=== PATIENT | male | born 1965 | race Caucasian/White ===

== ENCOUNTER → 2019-11-19 10:13 | Outpatient (BNVA) | payer MEDICARE, SELFPAY | PROVIDERS: Visit Provider Family Medicine | DX: I10 Essential (primary) hypertension (principal); J44.9 Chronic obstructive pulmonary disease, unspecified; K21.9 Gastro-esophageal reflux disease without esophagitis | CPT/HCPCS: 80053; 80061; 83735; 85025 ==

== ENCOUNTER → 2020-02-09 13:43 | Outpatient (BNVA) | payer MEDICARE, SELFPAY | PROVIDERS: PCP Family Medicine; Referring Provider Family Medicine; Visit Provider Specialist | DX: G37.9 Demyelinating disease of central nervous system, unspecified (principal); F41.0 Panic disorder [episodic paroxysmal anxiety]; Z87.891 Personal history of nicotine dependence | CPT/HCPCS: 99205 ==

== ENCOUNTER → 2020-06-14 12:18 | Outpatient (BNVA) | payer MEDICARE, SELFPAY | PROVIDERS: PCP Family Medicine; Visit Provider Specialist | DX: G37.9 Demyelinating disease of central nervous system, unspecified (principal); Z87.891 Personal history of nicotine dependence | CPT/HCPCS: 99214 ==

== ENCOUNTER → 2020-07-21 17:59 | Outpatient (BNVA) | payer MEDICARE, SELFPAY | PROVIDERS: PCP Family Medicine; Visit Provider Family Medicine | DX: H53.50 Unspecified color vision deficiencies (principal); H54.3 Unqualified visual loss, both eyes; I10 Essential (primary) hypertension; R90.89 Other abnormal findings on diagnostic imaging of central nervous system; Q24.8 Other specified congenital malformations of heart; M62.838 Other muscle spasm | CPT/HCPCS: 80053 ==

== ENCOUNTER 2020-08-02 10:09 | Outpatient (CLI) | payer MEDICARE, SELFPAY ==
--- NOTE | 2020-08-02 10:15 | USCV_ITS ---
Vu Hunter Age: 55 Gender: M : 1965 Exam Date: 08/02/2020 10:30 Ordering Phys: Jennifer Sweet MD Technologist: Liv Steward Exam Location: [facility] [place] Indication: ESSENTIAL HYPERTENSION, history of left- ventricular outflow tract obstruction BP: 125 / 80 HR: 130 Rhythm: Sinus Technical Quality: Technically difficult study MEASUREMENTS (Male / Female) Normal Values 2D ECHO LV Diastolic Diameter PLAX 4.0 cm 4.2 - 5.9 / 3.9 - 5.3 cm LV Systolic Diameter PLAX 2.8 cm IVS Diastolic Thickness 1.2 cm 0.6 - 1.0 / 0.6 - 0.9 cm IVS Systolic Thickness 1.5 cm LVPW Diastolic Thickness 1.3 cm 0.6 - 1.0 / 0.6 - 0.9 cm LVPW Systolic Thickness 1.7 cm LVOT Diameter 2.0 cm LV Ejection Fraction 2D Teich 48.3 % LV Ejection Fraction MOD 2C 54.7 % LV Ejection Fraction 2C AL 56.3 % LA Diameter 3.0 cm LA Width 3.7 cm LA Height 5.5 cm RA Width 3.2 cm RA Height 5.2 cm Aorta at Sinotubular Diameter 2.7 cm M-MODE LV Diastolic Diameter MM 4.5 cm 4.2 - 5.9 / 3.9 - 5.3 cm LV Systolic Diameter MM 2.7 cm LV Ejection Fraction MM Teich 70.2 % IVS Diastolic Thickness MM 1.3 cm 0.6 - 1.0 / 0.6 - 0.9 cm IVS Systolic Thickness MM 1.3 cm LVPW Diastolic Thickness MM 1.2 cm 0.6 - 1.0 / 0.6 - 0.9 cm LVPW Systolic Thickness MM 1.5 cm Aortic Annulus Diameter 4.1 cm LA Ao Ratio MM 0.7 DOPPLER AV Peak Velocity 144.0 cm/s LVOT Peak Velocity 152.0 cm/s AV Area Cont Eq vti 3.1 cm squared AV Area Cont Eq pk 3.3 cm squared MV Area PHT 3.3 cm squared Mitral E to A Ratio 0.9 MV E' Velocity 43.0 cm/s Mitral E to MV E' Ratio 6.2 Mitral E to LV E' Lateral Ratio 5.2 Mitral E to LV E' Septal Ratio 7.7 TR Peak Velocity 279.0 cm/s TR Peak Gradient 31.1 mmHg TV Peak E Velocity 56.0 cm/s Right Atrial Pressure 3.0 mmHg Pulmonary Artery Systolic Pressu 34.1 mmHg PV Peak Velocity 104.0 cm/s RV Acceleration Time 0.1 s RV Ejection Time 0.3 s RV AcT/ET 0.5 FINDINGS Left Ventricle Normal left ventricular size and wall thickness, with no regional wall motion abnormalities. Hyperdynamic left ventricle systolic function. Left ventricular ejection fraction is estimated at 75 %. Normal diastolic function. Right Ventricle Normal right ventricular size and systolic function (TAPSE=2.5) . Right ventricular systolic pressure 37 mmHg. Right Atrium Normal right atrial size. Right atrial pressure estimated at 8 mmHg. Left Atrium Normal left atrial size. Mitral Valve Systolic anterior motion of anterior mitral leaflet and chordae. No mitral valve stenosis. No significant mitral valve regurgitation. Aortic Valve Probably trileaflet aortic valve. No aortic valve stenosis. Trace aortic valve regurgitation. Left ventricular outflow tract velocity of 1.5 m/s (mean gradient 5 mm Hg) at rest likely in setting of hyperdynamic left ventricle systolic function. Tricuspid Valve Structurally normal tricuspid valve. Trace to mild tricuspid valve regurgitation. Pulmonic Valve Pulmonic valve not well visualized. Trace pulmonary valve regurgitation. Pericardium No pericardial effusion. Aorta Aortic root measured at 37 mm at sinus of Valsalva. Normal- sized inferior vena cava with decreased respiratory variation. CONCLUSIONS 1. This is a technically difficult study. 2. Normal left ventricular size and wall thickness, with no regional wall motion abnormalities. Hyperdynamic left ventricle systolic function. Left ventricular ejection fraction is estimated at 75 %. Normal diastolic function. 3. Normal right ventricular size and systolic function. 4. Pulmonary artery pressure estimated at 37 mmHg. 5. Left ventricular outflow tract velocity of 1.5 m/s (mean gradient 5 mm Hg) at rest likely in setting of hyperdynamic left ventricle systolic function. Valsalva was not performed. 6. Systolic anterior motion of anterior mitral leaflet and chordae. 7. No prior similar studies to compare. Porsha Ng MD (Electronically Signed) Final Date: 13 August 2020 11:18 S
== END 2020-08-02 10:10 | disposition home or self-care (01) ==
LOC: RAD 10:13
PROVIDERS: PCP Family Medicine; Visit Provider Family Medicine
DX: I10 Essential (primary) hypertension (principal); Q24.8 Other specified congenital malformations of heart
CPT/HCPCS: 93306

== ENCOUNTER → 2021-01-18 11:55 | Outpatient (BNVA) | payer MEDICARE, SELFPAY | PROVIDERS: PCP Family Medicine; Visit Provider Family Medicine | DX: M62.838 Other muscle spasm (principal); R25.3 Fasciculation; R32 Unspecified urinary incontinence; M51.16 Intervertebral disc disorders with radiculopathy, lumbar region; K21.9 Gastro-esophageal reflux disease without esophagitis; I10 Essential (primary) hypertension; E78.2 Mixed hyperlipidemia; R73.03 Prediabetes; J43.8 Other emphysema | CPT/HCPCS: 80053; 80061; 83036; 85025 ==

== ENCOUNTER → 2021-07-06 14:18 | Outpatient (BNVA) | payer MEDICARE, SELFPAY | PROVIDERS: PCP Family Medicine; Visit Provider Family Medicine | DX: K21.9 Gastro-esophageal reflux disease without esophagitis (principal); M62.838 Other muscle spasm; I10 Essential (primary) hypertension; Z12.5 Encounter for screening for malignant neoplasm of prostate; N40.0 Benign prostatic hyperplasia without lower urinary tract symptoms; J43.8 Other emphysema; E78.2 Mixed hyperlipidemia | CPT/HCPCS: 80053; 83735; 84153; 85025 ==

== ENCOUNTER → 2022-01-03 13:27 | Outpatient (BNVA) | payer MEDICARE, SELFPAY | PROVIDERS: PCP Family Medicine; Visit Provider Family Medicine | DX: I10 Essential (primary) hypertension (principal); R30.0 Dysuria; M51.16 Intervertebral disc disorders with radiculopathy, lumbar region; M25.511 Pain in right shoulder; F41.1 Generalized anxiety disorder; N39.41 Urge incontinence; S60.032A Contusion of left middle finger without damage to nail, initial encounter; N39.43 Post-void dribbling | CPT/HCPCS: 81000 ==

== ENCOUNTER 2022-02-06 15:22 | Emergency (ER) | payer MEDICARE, SELFPAY ==
[2022-02-06 15:39] VITALS: BP 171/103; PULSE 101; RESP 16; TEMP 36.4; O2SAT 94; BMI 30.8
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
--- NOTE | 2022-02-06 18:29 | XRR_ITS ---
PROCEDURE INFORMATION: Exam: XR Left Hip Exam date and time: 02/06/2022 6:40 PM Age: 56 years old Clinical indication: Hip pain; Left hip; Additional info: Fall injury, include pelvis TECHNIQUE: Imaging protocol: Radiologic exam of the Left hip. Views: 2 or 3 views hip with pelvis when performed. COMPARISON: No relevant prior studies available. FINDINGS: Bones/joints: Degenerative changes in the spine, sacroiliac joints, and hips. No acute fracture. No dislocation. Normal bone mineralization. Soft tissues: No soft tissue swelling. No radiopaque foreign body. XR/XR hip LT 2-3V wo/w pel* [id number] IMPRESSION: 1. No acute fracture. MRI of the pelvis would be recommended if clinical concern for fracture persists. 2. Incidental/nonacute findings are listed in the report.
--- NOTE | 2022-02-06 18:32 | CTR_ITS ---
PROCEDURE INFORMATION: Exam: CTA Chest With Contrast Exam date and time: 02/06/2022 6:54 PM Age: 56 years old Clinical indication: Abdominal pain; Left-sided; Prior surgery; Surgery type: Appy, sigmoidectomy, shoulder; Additional info: S/P trauma chest pain, n/v, abd pain TECHNIQUE: Imaging protocol: Computed tomographic angiography of the chest with contrast. Sagittal and coronal reformatted images were created and reviewed. 3D rendering (Not supervised by radiologist): MIP and/or 3D reconstructed images were created by the technologist. Radiation optimization: All CT scans at this facility use at least one of these dose optimization techniques: automated exposure control; mA and/or kV adjustment per patient size (includes targeted exams where dose is matched to clinical indication); or iterative reconstruction. Contrast material: OMNI 350; Contrast volume: 100 ml; Contrast route: INTRAVENOUS (IV); COMPARISON: MR thoracic spin wo con* [id number] 05/06/2018 4:16 PM RADIATION DOSE METRICS: Total DLP (mGy-cm): 1601.9 FINDINGS: Pulmonary arteries: No filling defects in the pulmonary arteries to suggest pulmonary embolism. Aorta: Mild atherosclerotic changes in the visualized arteries. No extravasation of contrast from the thoracic vessels. Trachea: Tracheobronchial structures are patent. Lungs: Moderate paraseptal and centrilobular emphysematous changes in the lungs, particularly in the upper lobes. Dependent atelectasis in the lungs bilaterally. No focal consolidation. No pulmonary edema. No pulmonary parenchymal nodules or masses. Pleural spaces: No pneumothorax. No pleural effusion. Heart: Mild enlargement of the heart. Mediastinal space: No mediastinal hematoma. No pneumomediastinum. Lymph nodes: No lymphadenopathy. Bones/joints: There is a comminuted and mildly displaced fracture of the coracoid process of the scapula (series 7, images 80-122). Comminuted and mildly displaced fracture of the posterior humeral head extending inferiorly to the proximal metaphysis with involvement of the greater and lesser tuberosities (series 7, images 135-231). Soft tissues: Soft tissue swelling around the proximal left humerus. PROCEDURE INFORMATION: Exam: CT Abdomen And Pelvis With Contrast Exam date and time: 02/06/2022 6:54 PM Age: 56 years old Clinical indication: Abdominal pain; Left-sided; Prior surgery; Surgery type: Appy, sigmoidectomy, shoulder; Additional info: S/P trauma chest pain, n/v, abd pain TECHNIQUE: Imaging protocol: Computed tomography of the abdomen and pelvis with contrast. Sagittal and coronal reformatted images were created and reviewed. Radiation optimization: All CT scans at this facility use at least one of these dose optimization techniques: automated exposure control; mA and/or kV adjustment per patient size (includes targeted exams where dose is matched to clinical indication); or iterative reconstruction. Contrast material: OMNI 350; Contrast volume: 100 ml; Contrast route: INTRAVENOUS (IV); COMPARISON: CR (PELVIS, ) 02/06/2022 6:40 PM RADIATION DOSE METRICS: Total DLP (mGy-cm): 1601.9 FINDINGS: Liver: Small area of decreased density in the liver adjacent to the falciform ligament, this most likely represents focal fatty infiltration. Gallbladder and bile ducts: The gallbladder is unremarkable. No biliary ductal dilatation. Pancreas: The pancreas is unremarkable. No pancreatic ductal dilatation. Spleen: The spleen is unremarkable. Adrenal glands: The right adrenal gland is unremarkable. Indeterminate focus in the left adrenal gland. Hounsfield units show density greater than expected for an adenoma. This measures 2.2 x 1.9 cm (series 5, image 28). Kidneys and ureters: The right and left kidneys are unremarkable. The right and left ureters are unremarkable. Stomach and bowel: Patient has has a previous sigmoidectomy. Scattered diverticula in the colon. No evidence for diverticulitis. No acute abnormality in the small bowel. No acute abnormality in the stomach. Appendix: Appendix not definitely visualized. No inflammatory changes in the pericecal region however. Intraperitoneal space: No free intraperitoneal air. No ascites. No loculated fluid collections to suggest an abscess. Vasculature: Moderate atherosclerotic changes in the visualized arteries. No evidence for aortic aneurysm or aortic dissection. Hepatic veins, portal veins, splenic vein, and SMV are patent. No extravasation of contrast from the abdominopelvic vessels. Lymph nodes: No lymphadenopathy. Urinary bladder: Unremarkable as visualized. Reproductive: Unremarkable as visualized. Bones/joints: No acute fracture. Soft tissues: No acute abnormality in the extra-abdominal soft tissues. CT/CT angio chest w abd pel w con IMPRESSION: 1. Comminuted and mildly displaced fracture of the coracoid process of the scapula. 2. Comminuted and mildly displaced fracture of the posterior humeral head extending inferiorly to the proximal metaphysis with involvement of the greater and lesser tuberosities. 3. No evidence for aortic aneurysm or aortic dissection. 4. No evidence for pulmonary embolism. 5. Dependent atelectasis in the lungs bilaterally. 6. Incidental/nonacute findings are listed in the report. IMPRESSION: 1. No acute abnormality in the abdomen or pelvis. 2. No evidence for acute traumatic injury in the abdomen or pelvis. 3. Indeterminate focus in the left adrenal gland. Non-emergent adrenal CT is recommended. (Reference: Mai) 4. Scattered diverticula in the colon. No evidence for diverticulitis. 5. Incidental/nonacute findings are listed in the report. REFERENCES: Mai SAVAGE, et al. Management of Incidental Adrenal Masses: A White Paper of the ACR Incidental Findings Committee. J Am Mell Radiol. 2017;14(8):0084-4342.
[2022-02-06] MEDS: iohexol 350 mg/mL 500 mL Btl (per mL) IV (19:04)
[2022-02-06] MEDS: sodium chloride 0.9% 1,000 ML 999 ML IV (19:46)
[2022-02-06 19:47] VITALS: RESP 18; O2SAT 96
[2022-02-06] MEDS: ondansetron 2 mg/ML SDV 2 mL 4 MG IVP (19:47)
[2022-02-06] MEDS: fentaNYL 50 mcg/mL INJ 2mL IVP (19:47)
[2022-02-06] MEDS: ketorolac 30 mg/mL INJ 15 MG IVP (19:47)
[2022-02-06 19:53] VITALS: BP 162/89; PULSE 82; RESP 18; O2SAT 96
[2022-02-06 21:37] VITALS: BP 141/88; PULSE 83; RESP 15; O2SAT 95
== END 2022-02-06 21:37 | disposition home or self-care (01) ==
PROVIDERS: Emergency Provider Nurse Practitioner Family; PCP Family Medicine
DX: M25.552 Pain in left hip (principal); M25.512 Pain in left shoulder; R10.32 Left lower quadrant pain; Z87.891 Personal history of nicotine dependence; J44.9 Chronic obstructive pulmonary disease, unspecified; I10 Essential (primary) hypertension; E78.2 Mixed hyperlipidemia
CPT/HCPCS: 71275; 73502; 74177; 96374; 96375; 99285; J1885; J2405; J3010; J7030; Q9967

== ENCOUNTER → 2022-04-20 09:48 | Outpatient (BNVA) | payer MEDICARE, SELFPAY | PROVIDERS: PCP Family Medicine; Visit Provider Family Medicine | DX: S42.295G Other nondisplaced fracture of upper end of left humerus, subsequent encounter for fracture with delayed healing (principal); W11.XXXD Fall on and from ladder, subsequent encounter | CPT/HCPCS: 73030 ==

== ENCOUNTER → 2022-05-09 14:21 | Outpatient (BNVA) | payer MEDICARE, SELFPAY | PROVIDERS: PCP Family Medicine; Referring Provider Family Medicine; Visit Provider Orthopaedic Surgery | DX: S42.295D Other nondisplaced fracture of upper end of left humerus, subsequent encounter for fracture with routine healing (principal); W11.XXXD Fall on and from ladder, subsequent encounter | CPT/HCPCS: 73030; 99203 ==

== ENCOUNTER 2022-05-26 10:22 | Outpatient (CLI) | payer MEDICARE, SELFPAY ==
--- NOTE | 2022-05-26 10:34 | IR_ITS ---
WS: [id number] LEFT SHOULDER ARTHROGRAM UNDER FLUOROSCOPY. PRIOR TO CT EVALUATION. HISTORY: OTHER NONDISPLACED FRACTURE OF UPPER END OF LEFT HUMERUS, pain. COMPARISON: Shoulder radiograph 05/09/2022. FLUOROSCOPY TIME: 0min [id number] # of spot films: 1 Procedure, risks and complications were explained to the patient. Consent has been obtained. Under fluoroscopic guidance the skin is marked over the medial superior third of the humeral head, cl eansed with ChloraPrep and anesthetized with lidocaine. 22-gauge spinal needle is inserted to the cor caleb of the humeral head. Approximately 13 cc Omnipaque 240 injected into the joint space. Patient desmond erated the joint distention well. No complications. Irregularity involving the surface of the humeral head. Partially healed fracture in good alignment a lso noted in the proximal humerus. IR/IR arthrogram shoulderLT [id number] IMPRESSION: Uncomplicated LEFT shoulder joint injection prior to CT arthrogram.
--- NOTE | 2022-05-26 11:00 | CT_ITS ---
WS: [id number] CT LEFT SHOULDER ARTHROGRAM HISTORY: Shoulder pain. Prior fracture. DLP: 473.[address] scans at [facility] use at least one of these dose optimization techniques: automated e xposure control; mA and/or kV adjustment per patient size (includes targeted exams where dose is matc hed to clinical indication); or iterative reconstruction. COMPARISON: Shoulder radiograph 05/09/2022. Good injection of contrast into the LEFT shoulder joint space. Moderate-sized full-thickness tear inv olving the anterior most supraspinatus tendon. Injected contrast extends along both supraspinatus ten don. Mild supraspinatus muscle atrophy. No additional rotator cuff tears are identified. Mild AC joint arthritis. IV contrast extends into the subacromial and subdeltoid bursa through the ro tator cuff tear. Biceps tendon appears to be in normal place. Mild glenohumeral joint narrowing. Smal l osteophyte along the posterior joint measuring 6 mm. Centrilobular and paraseptal emphysema. Partially healed fracture involving the proximal humerus. Ali gnment appears satisfactory. CT/CT shoulder LT w con [id number] IMPRESSION: 1. Full-thickness tear anterior most supraspinatus tendon. 2. Partially healed fracture in good alignment involving the proximal humerus. 3. 6 mm osteophyte along the posterior glenohumeral humeral joint.
[2022-05-26] MEDS: iohexol 240 mg/mL 50 mL Btl INTRA-ARTI (11:48)
== END 2022-05-26 10:23 | disposition home or self-care (01) ==
PROVIDERS: PCP Family Medicine; Visit Provider Orthopaedic Surgery
DX: S42.295G Other nondisplaced fracture of upper end of left humerus, subsequent encounter for fracture with delayed healing (principal); M75.102 Unspecified rotator cuff tear or rupture of left shoulder, not specified as traumatic; M25.722 Osteophyte, left elbow; X58.XXXA Exposure to other specified factors, initial encounter
CPT/HCPCS: 23350; 73201; 77002; Q9966

== ENCOUNTER → 2022-05-31 10:19 | Outpatient (BNVA) | payer MEDICARE, SELFPAY | PROVIDERS: PCP Family Medicine; Visit Provider Orthopaedic Surgery | DX: S42.202D Unspecified fracture of upper end of left humerus, subsequent encounter for fracture with routine healing (principal); M75.122 Complete rotator cuff tear or rupture of left shoulder, not specified as traumatic; W19.XXXD Unspecified fall, subsequent encounter | CPT/HCPCS: 99213 ==

== ENCOUNTER 2022-06-15 06:12 | Day surgery (SDC) | payer MEDICARE, SELFPAY ==
[2022-06-14 11:33] VITALS: BMI 31.0
[2022-06-15] VITALS (9 sets, daily range): BP systolic 112–144; BP diastolic 69–98; PULSE 64–79; RESP 16–18; TEMP 36.1–36.4; O2SAT 96–100
[2022-06-15] MEDS: sodium chloride 0.9% 1,000 ML 30 ML IV (07:26)
[2022-06-15] MEDS: CELEcoxib 200 mg Capsule 400 MG PO (07:28)
--- NOTE | 2022-06-15 08:12 | W.PM.OPSUD ---
Surgery/Procedure H&P Update DATE OF PROCEDURE: June 15, 2022 DATE H&P PERFORMED: 05/31/22 H&P UPDATE INFORMATION: I have reviewed H&P completed within last 30 days PREOP DIAGNOSIS: Rotator cuff tear/arthrofibrosis left shoulder PLANNED PROCEDURE: Operation Date: 06/15/22 08:20 Proposed Procedures p left shoulder arthroscopy with rotator cuff repair and lysis and resection of adhesions/ [id number],S42.209D(Left) - Al Carpio MD s Rotator Cuff Repair - Arthroscopy(Left) - Al Carpio MD
[2022-06-15] MEDS: ceFAZolin 2,000 MG in sodium chloride 0.9% (plus) 50 ML 100 MG IV (08:19)
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
[2022-06-15 08:30] LABS: Anion Gap 18.1 (5-19); Blood Urea Nitrogen 14 mg/dL (6-20); Calcium 9.5 mg/dL (8.5-10.5); Carbon Dioxide 20 mmol/L (22-29); Chloride 101 mmol/L (98-107); Glomerular Filtration Rate 115.4 mL/min (90-130); Glucose 99 mg/dL (65-115); Osmolality Calculated 281 mOsm/kg (285-295); Potassium 4.1 mmol/L (3.5-5.1); Sodium 135 mmol/L (136-145)
--- NOTE | 2022-06-15 09:24 | P.OP_ITS ---
Operative Report Date of procedure: June 15, 2022 Pre-op diagnosis: Preop Diagnosis Rotator cuff tear/arthrofibrosis left shoulder Post-op diagnosis: same Post-op diagnosis: Fibrosis left shoulder, low-grade partial-thickness bursal tear right supraspinatus Procedure done: Arthroscopic release of adhesions left shoulder Pathology: none sent Anesthesia: General Estimated blood loss (mL): 5 Findings: Under anesthesia the patient's shoulder can only be flexed to 90 degrees and externally rotated 10 degrees. He could be abducted 90 degrees. He had dense contractures over his anterior shoulder capsule. He had minimal degenerative appearing partial-thickness tearing over his supraspinatus tendon insertion Brief History: The patient sustained a fracture of his left proximal humerus on 02/03/2022 treated nonoperatively. Despite aggressive physical therapy he had significant motion loss and pain. A CT arthrogram was obtained suggesting tearing of the rotator cuff. Surgery was chosen to arthroscopic address adhesions that were limiting motion and potentially repair of the rotator cuff, a second pain generator Procedure: The patient was taken to the operating room and given a general anesthesia. He was given 2 g of Ancef. A timeout was performed. Initially the left shoulder was manipulated under anesthesia. The patient's shoulder could only be flexed initially to 90 degrees, externally rotated 10 degrees and abducted 45 degrees. Anterolateral shoulder motions were 150 degrees of flexion and 60 degrees of external rotation. In 90 degrees of abduction the contralateral shoulder could be externally rotated 60 degrees and internally rotated 50 degrees left shoulder was then initially manipulated in the flexion with a firm release of adhesions being noted with improvement to 150 degrees of flexion. The elbow was brought down to the side and externally rotated 60 degrees. He can then be abducted 90 degrees and externally rotate 60 degrees and rotate 50 degrees. These motions were identical to the contralateral side. The patient was then positioned in the lateral position with the left arm in 15 pounds of traction. It was prepped and draped the usual fashion. A posterior portal was made 2 cm inferior medial to the posterior corner of the acromion. A scope cannula and trocar were driven into the glenohumeral joint. The complete disruption of the anterior and superior capsule was identified after the ma nipulation. Utilizing the werewolf probe the anterior capsule release was completed capsule debrided back to a stable base. A similar debridement was accomplished in the rotator interval. The scope was then moved to the anterior portal and the posterior capsule inspected with really no significant tearing in that structure and a posterior capsular release was not done. The bursal rotator cuff was inspected and found to be free of tearing. The biceps tendon was retracted in the wound and found to be healthy. The scope was then directed into the subacromial space and a lateral working portal opened up with a scalpel blade. Extensive subacromial bursitis was noted. Utilizing a werewolf probe bursal tissue was removed as were adhesions between the anterior and lateral deltoid and the rotator cuff. The bursal aspect once cleared to be inspected. There is some superficial degeneration of the cuff but really no full-thickness tears were identified. The undersurface of the acromion was free of spurring. The shoulder was irrigated with saline. Arthroscopic clip was removed. Portals were closed with 3-0 Prolene. Sterile dressings were applied.
--- NOTE | 2022-06-15 14:27 | ANE.PACU2 ---
Inpatient post-anesthesia follow up: Airway intact: Yes Vital signs: Temperature 97.5 F Pulse Rate 79 Respiratory Rate 16 Blood Pressure 142/98 Pulse Oximetry 98 Oxygen Delivery Me thod Room Air Oxygen Flow Rate 6 Fraction of Inspir ed Oxygen Hydration adequate: Yes Nausea and vomiting: No Pain level: 1 Mental status: Baseline
== END 2022-06-15 11:00 | disposition home or self-care (01) ==
PROVIDERS: Anesthesiology; PCP Family Medicine; Visit Provider Orthopaedic Surgery
PROC: (CPT 29805; principal; 2022-06-15 08:10)
DX: M24.612 Ankylosis, left shoulder (principal); S42.202S Unspecified fracture of upper end of left humerus, sequela; X58.XXXS Exposure to other specified factors, sequela; Z79.82 Long term (current) use of aspirin; J44.9 Chronic obstructive pulmonary disease, unspecified; K21.9 Gastro-esophageal reflux disease without esophagitis; E78.2 Mixed hyperlipidemia; I10 Essential (primary) hypertension; Z87.891 Personal history of nicotine dependence
CPT/HCPCS: 29825; 36415; 80048; J0690; J1100; J2250; J2405; J2704; J2795; J3010; J3490; J7030

== ENCOUNTER → 2022-06-28 13:49 | Outpatient (BNVA) | payer MEDICARE, SELFPAY | PROVIDERS: PCP Family Medicine; Visit Provider Orthopaedic Surgery | DX: Z98.890 Other specified postprocedural states (principal) | CPT/HCPCS: 99024 ==

== ENCOUNTER → 2022-08-02 12:56 | Outpatient (BNVA) | payer MEDICARE, SELFPAY | PROVIDERS: PCP Family Medicine; Visit Provider Orthopaedic Surgery | DX: Z98.890 Other specified postprocedural states (principal) | CPT/HCPCS: 99024 ==

== ENCOUNTER → 2022-10-23 14:14 | Outpatient (BNVA) | payer MEDICARE, SELFPAY | PROVIDERS: PCP Family Medicine; Visit Provider Family Medicine | DX: K21.9 Gastro-esophageal reflux disease without esophagitis (principal); I10 Essential (primary) hypertension; J44.9 Chronic obstructive pulmonary disease, unspecified; E78.2 Mixed hyperlipidemia; Z12.5 Encounter for screening for malignant neoplasm of prostate; L25.9 Unspecified contact dermatitis, unspecified cause; E27.8 Other specified disorders of adrenal gland; L24.9 Irritant contact dermatitis, unspecified cause; M51.16 Intervertebral disc disorders with radiculopathy, lumbar region; Z13.1 Encounter for screening for diabetes mellitus; Z78.9 Other specified health status; M25.50 Pain in unspecified joint; G89.29 Other chronic pain | CPT/HCPCS: 80053; 80061; G0103 ==

== ENCOUNTER 2023-01-01 11:41 | Outpatient (CLI) | payer MEDICARE, SELFPAY ==
--- NOTE | 2023-01-01 12:30 | CT_ITS ---
WS: [id number] CT ABDOMEN AND PELVIS WITH AND WITHOUT CONTRAST HISTORY: E27.8 - Other specified disorders of adrenal gland TECHNIQUE: Unenhanced 5 mm axial imaging first performed through the abdomen. Post contrast imaging t hrough the abdomen and pelvis. Oral contrast has been provided. Sagittal and coronal reformats are s ubmitted. All CT scans at [facility] use at least one of these dose optimization techniques: automated exposure control; mA and/or kV adjustment per patient size (includes targeted exams where d ose is matched to clinical indication); or iterative reconstruction. CONTRAST: Omnipaque 350; 95 mL IV. DLP: 1802.43 mGy.cm COMPARISON: 02/06/2022 Lung bases are clear. Normal size heart. Small hiatal hernia. RIGHT adrenal gland: Normal. No mass. LEFT adrenal gland: Well-circumscribed low-attenuation mass measures 1.7 x 2.0 cm. Absolute washout v alue 76%. Relative washout value 68%. These values are consistent with benign adenomas. Normal size liver. Area of decreased attenuation along the falciform ligament from hepatic steatosis. Negative gallbladder. Normal portal vein. Normal pancreas. Normal spleen. Normal kidneys. Mild ather osclerosis aorta with mild ectasia. Maximal transverse diameter of the aorta is 2.8 cm. No ascites or adenopathy. Normally distended stomach. No small bowel obstruction. Surgical anastomosis at the sigmoid with no o bstruction. No mass or adenopathy at this location. There are a few scattered diverticula without acu te diverticulitis. Prior appendectomy. No destructive bone lesions. IMPRESSION: 1. LEFT adrenal adenoma. Washout values suggest this is a benign adenoma. 2. Focal hepatic steatosis along the falciform ligament. 3. Sigmoid anastomosis is intact with no obstruction. No acute diverticulitis. 4. Prior appendectomy.
[2023-01-01] MEDS: iohexol 350 mg/mL 500 mL Btl (per mL) IV (12:40)
== END 2023-01-01 11:42 | disposition home or self-care (01) ==
LOC: RAD 11:41
PROVIDERS: PCP Family Medicine; Visit Provider Family Medicine
DX: E27.8 Other specified disorders of adrenal gland (principal); D35.02 Benign neoplasm of left adrenal gland; K76.0 Fatty (change of) liver, not elsewhere classified; Z98.0 Intestinal bypass and anastomosis status; Z90.89 Acquired absence of other organs
CPT/HCPCS: 74178; Q9967

== ENCOUNTER → 2023-03-01 09:59 | Outpatient (BNVA) | payer MEDICARE, SELFPAY | PROVIDERS: PCP Family Medicine; Visit Provider Family Medicine | DX: M62.838 Other muscle spasm (principal); G37.9 Demyelinating disease of central nervous system, unspecified; J44.9 Chronic obstructive pulmonary disease, unspecified; R26.89 Other abnormalities of gait and mobility; M62.81 Muscle weakness (generalized); R25.3 Fasciculation; R29.6 Repeated falls; R53.83 Other fatigue | CPT/HCPCS: 80053; 82607; 82746; 83540; 83735; 84443; 85007; 85027 ==

== ENCOUNTER → 2023-05-01 09:52 | Outpatient (BNVA) | payer MEDICARE, SELFPAY | PROVIDERS: PCP Family Medicine; Visit Provider Family Medicine | DX: S89.91XA Unspecified injury of right lower leg, initial encounter (principal); M62.830 Muscle spasm of back; X58.XXXA Exposure to other specified factors, initial encounter | CPT/HCPCS: 73590 ==

== ENCOUNTER → 2023-06-27 11:25 | Outpatient (BNVA) | payer MEDICARE, SELFPAY | PROVIDERS: PCP Family Medicine; Referring Provider Family Medicine; Visit Provider Psychiatry & Neurology Neurology | DX: M54.9 Dorsalgia, unspecified (principal); M62.838 Other muscle spasm; G37.9 Demyelinating disease of central nervous system, unspecified; R26.89 Other abnormalities of gait and mobility; M25.50 Pain in unspecified joint; G89.29 Other chronic pain; N39.41 Urge incontinence; M54.12 Radiculopathy, cervical region; E55.9 Vitamin D deficiency, unspecified; I10 Essential (primary) hypertension; N39.43 Post-void dribbling; R25.3 Fasciculation; R53.1 Weakness; R41.0 Disorientation, unspecified | CPT/HCPCS: 36415; 82085; 82306; 82550; 86337; 86341; 86592; 86617; 86780; 99203; 99214 ==

== ENCOUNTER → 2024-11-20 10:51 | Outpatient (BNVA) | payer MEDICARE, SELFPAY | PROVIDERS: PCP Family Medicine; Visit Provider Family Medicine | DX: Z12.5 Encounter for screening for malignant neoplasm of prostate (principal); I10 Essential (primary) hypertension; N64.4 Mastodynia; E78.2 Mixed hyperlipidemia; Q24.8 Other specified congenital malformations of heart; J43.8 Other emphysema; R53.83 Other fatigue; E27.8 Other specified disorders of adrenal gland; R00.2 Palpitations; N40.0 Benign prostatic hyperplasia without lower urinary tract symptoms | CPT/HCPCS: 80053; 80061; 81000; 83735; 84146; 84153; 84443; 85025 ==